=== PATIENT | female | born 1990 | race African-American/Black ===

== ENCOUNTER 2020-07-29 17:09 | Emergency (ER) | payer MEDICAID ==
[~2020-07-29] VITALS: Ht 154.9 cm; Wt 48.0 kg
[2020-07-29] MEDS ORDERED: ACETAMINOPHEN 325MG TABLET PO ONE (17:30)
[2020-07-29] MEDS ORDERED: IBUPROFEN 600MG TABLET PO ONE (17:45)
[2020-07-29] MEDS ORDERED: CEPHALEXIN 250MG CAPSULE PO ONE (17:45)
[2020-07-29] MEDS ORDERED: CEPH500T MT (18:33)
[2020-07-29 18:41] VITALS: BP 132/86
== END 2020-07-29 19:02 | disposition home or self-care (01) ==
LOC: ER 17:09
DX: S30.810A Abrasion of lower back and pelvis, initial encounter (principal); L03.317 Cellulitis of buttock; Y03.8XXA Other assault by crashing of motor vehicle, initial encounter; Y93.9 Activity, unspecified; Y92.410 Unspecified street and highway as the place of occurrence of the external cause
CPT/HCPCS: 71045; 72170; 81025; 99284

== ENCOUNTER 2021-02-10 13:01 | Emergency (ER) | payer MEDICAID ==
[~2021-02-10] VITALS: Ht 154.9 cm; Wt 48.0 kg
[~2021-02-10 13:01] MED LIST: CEPH500T MT
[2021-02-10] MEDS ORDERED: KETOROLAC 60MG/2ML VIAL IM ONE (13:30)
[2021-02-10] MEDS ORDERED: HYDROCODONE/ACETAMINOPHEN 5/325MG TABLET PO ONE (13:30)
[2021-02-10] MEDS ORDERED: T3 PO (14:40)
[2021-02-10] MEDS ORDERED: AMOX-424 MT (14:40)
[2021-02-10 14:53] VITALS: BP 117/61
== END 2021-02-10 14:55 | disposition home or self-care (01) ==
LOC: ER 13:01
DX: K04.7 Periapical abscess without sinus (principal); F17.210 Nicotine dependence, cigarettes, uncomplicated; Z98.890 Other specified postprocedural states
CPT/HCPCS: 81025; 96372; 99283; J1885

== ENCOUNTER 2021-02-17 17:52 | Emergency (ER) | payer MEDICAID ==
[~2021-02-17] VITALS: Ht 165.1 cm; Wt 45.0 kg
[~2021-02-17 17:52] MED LIST changes: +AMOX-424 MT; +T3 PO
[2021-02-17] MEDS ORDERED: HYDROCODONE/ACETAMINOPHEN 5/325MG TABLET PO PRN (18:45)
[2021-02-17 20:27] VITALS: BP 110/64
== END 2021-02-17 20:27 | disposition home or self-care (01) ==
LOC: ER 17:52
DX: S06.9X9A Unspecified intracranial injury with loss of consciousness of unspecified duration, initial encounter (principal); Z98.890 Other specified postprocedural states; Y04.0XXA Assault by unarmed brawl or fight, initial encounter; Y07.03 Male partner, perpetrator of maltreatment and neglect; Y93.89 Activity, other specified; Y92.018 Other place in single-family (private) house as the place of occurrence of the external cause
CPT/HCPCS: 71045; 81025; 99284

== ENCOUNTER 2021-04-18 12:48 | Emergency (ER) | payer MEDICAID ==
[~2021-04-18] VITALS: Ht 154.9 cm; Wt 50.0 kg
[2021-04-18 12:56] VITALS: BP 113/78
== END 2021-04-18 13:09 | disposition home or self-care (01) ==
LOC: ER 12:48
DX: S09.8XXA Other specified injuries of head, initial encounter (principal); Z98.890 Other specified postprocedural states; Y04.0XXA Assault by unarmed brawl or fight, initial encounter; Y93.89 Activity, other specified; Y92.018 Other place in single-family (private) house as the place of occurrence of the external cause
CPT/HCPCS: 99281

== ENCOUNTER 2021-05-17 18:16 | Emergency (ER) | payer MEDICAID ==
[~2021-05-17] VITALS: Ht 154.9 cm; Wt 45.0 kg
[2021-05-17 19:15] VITALS: BP 126/80
== END 2021-05-17 20:00 | disposition left against medical advice (07) ==
LOC: ER 18:16
DX: R11.10 Vomiting, unspecified (principal); Z53.21 Procedure and treatment not carried out due to patient leaving prior to being seen by health care provider

== ENCOUNTER 2022-04-15 20:31 | Emergency (ER) | payer MEDICAID ==
[~2022-04-15] VITALS: Ht 154.9 cm; Wt 50.0 kg
[2022-04-15 22:52] VITALS: BP 117/45
== END 2022-04-16 07:03 | disposition left against medical advice (07) ==
LOC: ER 20:31
DX: R10.2 Pelvic and perineal pain (principal)
CPT/HCPCS: 99281

== ENCOUNTER 2022-10-29 06:33 | Emergency (ER) | payer MEDICAID ==
[~2022-10-29] VITALS: Ht 154.9 cm; Wt 48.8 kg
[2022-10-29] MEDS ORDERED: DOXYCYCLINE HYCLATE 100MG CAPSULE PO ONE (08:00)
[2022-10-29] MEDS ORDERED: CEFTRIAXONE SODIUM 1 G/VIAL IM ONE (08:00)
[2022-10-29] MEDS ORDERED: DOXY100C5 PO (08:15)
[2022-10-29 08:39] LABS: CLARITY URINE CLEAR (CLEAR); COLOR URINE YELLOW (YELLOW); KETONES URINE NEGATIVE (NEGATIVE); LEUKOCYTE ESTERASE URINE NEGATIVE (NEGATIVE); NITRITE URINE NEGATIVE (NEGATIVE); OCCULT BLOOD URINE 1+ (NEGATIVE); PH URINE 5.5 (4.5-8.0); PROTEIN URINE NEGATIVE (NEGATIVE); SPECIFIC GRAVITY URINE 1.007 (1.005-1.030); UROBILINOGEN URINE 0.2 E.U./dL (0.2-1.0)
[2022-10-29 09:31] VITALS: BP 112/60
[2022-10-31 05:11] LABS: NEISSERIA GONORRHOEAE NAA Negative (Negative)
== END 2022-10-29 09:32 | disposition home or self-care (01) ==
LOC: ER 06:33
DX: A64 Unspecified sexually transmitted disease (principal); Z98.890 Other specified postprocedural states; Z79.899 Other long term (current) drug therapy
CPT/HCPCS: 81003; 81025; 87210; 87491; 87591; 96372; 99283; J0696; Z7610

== ENCOUNTER 2022-12-03 19:16 | Emergency (ER) | payer MEDICAID ==
[~2022-12-03] VITALS: Ht 154.9 cm; Wt 49.2 kg
[~2022-12-03 19:16] MED LIST changes: +DOXY100C5 PO
[2022-12-03 19:30] VITALS: BP 110/73; PULSE 62; TEMP 97.8; O2SAT 99
[2022-12-03 20:08] LABS: BASOPHILS % 0.7 % (0.0-2.0); EOSINOPHILS % 2.5 % (0.0-5.0); HEMATOCRIT. 36.1 % (36.0-48.0); LYMPHOCYTES % 46.7 % (20.0-50.0); MEAN CORPUSCULAR HEMOGLOBIN 28.2 pg (28.0-32.0); MEAN CORPUSCULAR VOLUME 84.7 fL (81.0-99.0); MEAN PLATELET VOLUME 8.3 fl (7.4-10.4); NEUTROPHILS % 42.1 % (40.0-76.0); PLATELET 294 x1000/uL (130-400); RED BLOOD CELL COUNT 4.26 mill/uL (4.2-5.4); RED CELL DISTRIBUTION WIDTH 14.7 % (11.6-14.6)
[2022-12-03 20:13] LABS: CHLORIDE 109 mEq/L (98-107)
[2022-12-03 21:26] LABS: CLARITY URINE CLEAR (CLEAR); COLOR URINE YELLOW (YELLOW); KETONES URINE NEGATIVE (NEGATIVE); LEUKOCYTE ESTERASE URINE NEGATIVE (NEGATIVE); NITRITE URINE NEGATIVE (NEGATIVE); OCCULT BLOOD URINE TRACE (NEGATIVE); PROTEIN URINE NEGATIVE (NEGATIVE); SPECIFIC GRAVITY URINE 1.021 (1.005-1.030); UROBILINOGEN URINE 0.2 E.U./dL (0.2-1.0)
== END 2022-12-03 21:29 | disposition home or self-care (01) ==
LOC: ER 19:16
DX: R07.89 Other chest pain (principal); Z98.890 Other specified postprocedural states
CPT/HCPCS: 36415; 71045; 80053; 81003; 81025; 84484; 85025; 93005; 99285